=== PATIENT | female | born 1950 | race Two or more races ===

== ENCOUNTER 2019-02-14 16:21 | Inpatient (IN) | payer OTHER ==
[~2019-02-14] VITALS: Ht 157.5 cm; Wt 60.5 kg
[~2019-02-14 16:21] MED LIST: MORPHINE; NAPROSYN; PERCOCET; VALIUM
[2019-02-14 19:08] LABS: Urine Bacteria NONE SEEN /hpf (None Seen); Urine Blood Negative /uL (Negative); Urine Mucus FEW (None Seen); Urine Specific Gravity 1.024 (1.001-1.035); Urine WBC 44 /hpf (0 - 5)
[2019-02-14 21:41] LABS: Basophils # (auto) 0 uL; Basophils % (auto) 0.3 % (0.0-2.0); Eosinophils # (auto) 0.1 uL; Hematocrit 37.2 % (36.0-46.0); Hemoglobin 12.4 g/dL (12.2-16.2); Lymphocytes # (auto) 0.6 uL; Lymphocytes % (auto) 7.9 % (10.0-50.0); Mean Corpuscular Hemoglobin 29.1 pg (28.0-32.0); Mean Corpuscular Hgb Conc. 33.3 g/dL (32.0-36.0); Mean Corpuscular Volume 87.2 fL (80.0-100.0); Monocytes # (auto) 0.7 uL; Monocytes % (auto) 8.5 % (0.0-12.0); Neutrophils # (auto) 6.7 uL; Neutrophils % (auto) 82.3 % (37.0-80.0); Platelet Count (auto) 211 10^3/uL (140-450); Red Blood Cells 4.27 10^6/uL (4.0-5.20); Red Cell Distribution Width 14.6 % (11.8-14.3); White Blood Cell 8.2 10^3/uL (4.4-10.8)
[2019-02-14] MEDS ORDERED: cefTRIAXone 1GM/50ML D5W 50 ML IV ONE (21:45)
[2019-02-14 21:55] LABS: Albumin 3.2 g/dL (3.4-5.0); BUN/Creatinine Ratio 21.5; Calcium 8.5 mg/dL (8.5-10.1); Potassium 3.6 mmol/L (3.5-5.1)
[2019-02-14 21:59] LABS: Bilirubin, Total 2.9 mg/dL (0.2-1.0); Total Protein 7.4 g/dL (6.4-8.2)
[2019-02-14] MEDS ORDERED: metroNIDAZOLE 500 MG TAB PO ONE (22:00)
[2019-02-15] MEDS ORDERED: MORPHINE SULF INJ 2 MG/ML SYRINGE 1ML IV PRN (04:00)
[2019-02-15] MEDS ORDERED: NITROGLYCERIN 0.4 MG SL TAB SL PRN (04:00)
[2019-02-15] MEDS: SODIUM CHLORIDE 0.9% 1,000 ML IV SCH ×4 (06:05→23:55)
[2019-02-15 06:20] VITALS: BP 135/57
--- NOTE | 2019-02-15 06:21 | NUR ---
Telemetry admit from ER Patient admitted to Telemetry unit and oriented to primary RN, unit, room, bed, and unit policies regarding patient care and visiting hours. Patient now on continuous telemetry monitoring, tele box # [id number] and telemetry reading on arrival to unit is sinus rhythm. Patient weighed by bedscale and encouraged to call if they need something. All questions and concerns addressed, patient verbalized understanding.
[2019-02-15] MEDS ORDERED: TEMA30CA PO (06:57)
[2019-02-15] MEDS ORDERED: ALEN1TAB32 PO (06:57)
[2019-02-15] MEDS ORDERED: SERT50TA PO (06:57)
[2019-02-15] MEDS ORDERED: MORP15TA PO (06:57)
--- NOTE | 2019-02-15 06:58 | NUR ---
Spoke to MD Preston. He ordered an MRCP MRI for today. Asked patient required MRI questions.
--- NOTE | 2019-02-15 07:30 | NUR ---
Opening Shift Note Assumed care of patient, awake and alert. No S/S of distress/SOB. DENIES ABDOMINAL pain. Instructed on POC and to call for assist PRN, will continue to monitor for changes Q1hr and PRN. PT IS NPO
[2019-02-15 08:30] VITALS: BP 137/76
[2019-02-15 09:21] LABS: Basophils # (auto) 0 uL; Basophils % (auto) 0.4 % (0.0-2.0); Eosinophils # (auto) 0.2 uL; Eosinophils % (auto) 3.5 % (0.0-7.0); Hematocrit 35.7 % (36.0-46.0); Hemoglobin 11.8 g/dL (12.2-16.2); Lymphocytes # (auto) 0.7 uL; Lymphocytes % (auto) 13.6 % (10.0-50.0); Mean Corpuscular Hemoglobin 28.8 pg (28.0-32.0); Mean Corpuscular Hgb Conc. 33.1 g/dL (32.0-36.0); Mean Corpuscular Volume 87.1 fL (80.0-100.0); Monocytes # (auto) 0.4 uL; Monocytes % (auto) 8.3 % (0.0-12.0); Neutrophils # (auto) 3.6 uL; Neutrophils % (auto) 74.2 % (37.0-80.0); Platelet Count (auto) 178 10^3/uL (140-450); Red Cell Distribution Width 14.6 % (11.8-14.3); White Blood Cell 4.8 10^3/uL (4.4-10.8)
[2019-02-15 09:48] LABS: Albumin 2.7 g/dL (3.4-5.0); Calcium 7.8 mg/dL (8.5-10.1); Potassium 3.3 mmol/L (3.5-5.1)
[2019-02-15] MEDS: PIPERACILLIN-TAZOB 3.375GM 100 ML IV SCH ×3 (09:53→20:58)
[2019-02-15] MEDS: ENOXAPARIN SOD 40 MG/0.4 ML SYRINGE SC SCH (09:54)
[2019-02-15 09:58] LABS: Bilirubin, Total 1.6 mg/dL (0.2-1.0); Total Protein 6.7 g/dL (6.4-8.2)
[2019-02-15 13:00] VITALS: BP 140/86
[2019-02-15 16:37] LABS: INR 1.01 (0.9-1.15); Partial Thromboplastin Time 31.9 sec (23.64-32.05)
[2019-02-15 17:00] VITALS: BP 155/68
--- NOTE | 2019-02-15 18:30 | NUR ---
DR LOPES AT BEDSIDE. INFORMED PT OF POSSIBLE CHOLECYSTECTOMY PROCEDURE TOMORROW. PT VERBALIZED UNDERSTANDING.
--- NOTE | 2019-02-15 19:12 | NUR ---
CLOSING NOTES PT RESTING IN BED. DENIES PAIN OR SOB AT THIS TIME. VERBALIZED COMFORT.
--- NOTE | 2019-02-15 19:20 | NUR ---
Opening Shift Note Received report from jennifer Briseno RN. Assumed care of patient, awake and alert. No S/S of distress/SOB or pain but having some anxiety. Instructed on POC and to call for assist PRN, will continue to monitor for changes Q1hr and PRN. Bed placed in lowest position, bed alarm turn on and call light within reach.
[2019-02-15 22:38] VITALS: BP 143/71
[2019-02-15] MEDS: MORPHINE SULF INJ 2 MG/ML SYRINGE 1ML IV PRN (23:52)
[2019-02-16] MEDS: ONDANSETRON HCL 4 MG/2 ML VIAL IV PRN ×3 (00:07→22:44)
[2019-02-16] MEDS: PIPERACILLIN-TAZOB 3.375GM 100 ML IV SCH ×4 (03:24→20:53)
[2019-02-16 05:00] VITALS: BP 119/74
[2019-02-16] MEDS: SODIUM CHLORIDE 0.9% 1,000 ML IV SCH ×3 (05:57→17:08)
[2019-02-16 06:12] LABS: Potassium 3.1 mmol/L (3.5-5.1)
[2019-02-16 06:14] LABS: Albumin 2.9 g/dL (3.4-5.0); BUN/Creatinine Ratio 16.7
[2019-02-16 06:23] LABS: Bilirubin, Total 1.5 mg/dL (0.2-1.0); Total Protein 7.1 g/dL (6.4-8.2)
[2019-02-16] MEDS ORDERED: POTASSIUM CHL 20MEQ/100ML 100 ML IV ONE (06:45)
--- NOTE | 2019-02-16 07:45 | NUR ---
Patient walking to the bathroom. at bedside.
--- NOTE | 2019-02-16 08:15 | NUR ---
Dr. Denise (GI Consult) at bedside speaking with patient and .
[2019-02-16] MEDS ORDERED: ONDANSETRON HCL 4 MG/2 ML VIAL ONE (08:23)
[2019-02-16] MEDS ORDERED: MIDAZOLAM HCL 1MG/1ML-2 ML VIAL ONE (08:23)
[2019-02-16] MEDS ORDERED: PROPOFOL 10 MG/ML 20 ML IV ONE (08:23)
[2019-02-16] MEDS ORDERED: MEPERIDINE HCL (25 MG/ML) 1ML VIAL ONE (08:23)
[2019-02-16] MEDS ORDERED: LIDOCAINE 2% (LOCAL ANESTH.) PF 5ml SDV ONE (08:23)
[2019-02-16] MEDS ORDERED: LIDOCAINE HCL 2% TOP JELLY 5ML TOP ONE (08:23)
[2019-02-16] MEDS ORDERED: fentaNYL CITRATE 100 MCG/2 ML VL ONE (08:23)
[2019-02-16] MEDS ORDERED: ROCURONIUM 10MG/ML 10ML VIAL IV ONE (08:23)
[2019-02-16] MEDS ORDERED: SODIUM CHLORIDE LOCK 10 ML ONE (08:23)
--- NOTE | 2019-02-16 08:30 | NUR ---
Transferred the patient via bed to Pre Op. Patient awake, alert, oriented x4, no acute distress noted. IV line intact and patent. Endorsed patient to Pre Op RN Seema. at bedside.
[2019-02-16] MEDS ORDERED: ceFAZolin 1GM/50ML 50 ML IV ONE (08:42)
[2019-02-16] MEDS ORDERED: METOCLOPRAMIDE HCL 5MG/ml INJ 2ml VIAL IV PRN (08:45)
[2019-02-16] MEDS ORDERED: MORPHINE SULFATE 4 MG/ML SYR/VIAL IV PRN (08:45)
[2019-02-16] MEDS ORDERED: fentaNYL CITRATE 100 MCG/2 ML VL IV PRN (08:45)
[2019-02-16] MEDS ORDERED: HYDROmorphone HCL 2 MG/ML VL IV PRN (08:45)
[2019-02-16 09:14] LABS: Basophils # (auto) 0 uL; Basophils % (auto) 0.5 % (0.0-2.0); Eosinophils # (auto) 0.1 uL; Eosinophils % (auto) 2.4 % (0.0-7.0); Hematocrit 36.7 % (36.0-46.0); Hemoglobin 12.2 g/dL (12.2-16.2); Lymphocytes # (auto) 1.3 uL; Lymphocytes % (auto) 21.8 % (10.0-50.0); Mean Corpuscular Hgb Conc. 33.2 g/dL (32.0-36.0); Mean Corpuscular Volume 87.4 fL (80.0-100.0); Monocytes # (auto) 0.5 uL; Monocytes % (auto) 9.3 % (0.0-12.0); Neutrophils # (auto) 3.8 uL; Platelet Count (auto) 247 10^3/uL (140-450); Red Cell Distribution Width 14.6 % (11.8-14.3); White Blood Cell 5.8 10^3/uL (4.4-10.8)
--- NOTE | 2019-02-16 09:20 | NUR ---
Dr. Epps came over. made aware patient is at OR/Surgery for Lap Cholecystectomy today as per Dr. Guzman.
--- NOTE | 2019-02-16 09:20 | NUR ---
Dr. Alas came over. made aware patient is as OR/Surgery at this time.
[2019-02-16] MEDS: ENOXAPARIN SOD 40 MG/0.4 ML SYRINGE SC SCH (09:28)
[2019-02-16] MEDS ORDERED: GLYCOPYRROLATE 0.2 MG/ML 1ML VIAL ONE (09:31)
[2019-02-16] MEDS ORDERED: NEOSTIGMINE 1 MG/ML INJ (10mg/10ML VIAL) ONE (09:31)
[2019-02-16] MEDS ORDERED: POVIDONE IODINE 5% TOPICAL CREAM TOP ONE (09:46)
--- NOTE | 2019-02-16 10:50 | NUR ---
Patient back to room, awake. Three incisions on the abdominal area noted, blood stain noted on the incision dressing below the umbilicus.
--- NOTE | 2019-02-16 11:07 | NUR ---
Zofran Inj given for nausea as ordered.
--- NOTE | 2019-02-16 11:15 | NUR ---
Assisted the patient to the bedside commode. Abdominal binder on.
--- NOTE | 2019-02-16 11:30 | NUR ---
SCD's on bilateral legs hooked on SCD machine.
[2019-02-16] MEDS ORDERED: HYDROcodone-ACET 10/325MG TAB PO PRN (12:45)
[2019-02-16 13:00] VITALS: BP 115/64
--- NOTE | 2019-02-16 17:20 | NUR ---
Patient refused to have pain medication at this time, stated she wants to have it around 9:00 pm before bedtime.
[2019-02-16 17:30] VITALS: BP 126/71
--- NOTE | 2019-02-16 19:15 | NUR ---
Opening Shift Note Received report from jennifer Chauhan RN. Assumed care of patient, awake and alert. No S/S of distress/SOB or pain. Instructed on POC and to call for assist PRN, will continue to monitor for changes Q1hr and PRN. Bed placed in lowest position, call light within reach and bed alarm turned on.
--- NOTE | 2019-02-16 21:00 | NUR ---
PATIENT AMBULATING ON THE HALLWAY. PATIENT STATES SHE PASSES A LOT OF GAS. NO BOWEL MOVEMENT REPORTED AT THIS TIME.
[2019-02-16 21:48] VITALS: BP 128/65
[2019-02-16] MEDS: MORPHINE SULF INJ 2 MG/ML SYRINGE 1ML IV PRN (22:44)
[2019-02-17] MEDS: PIPERACILLIN-TAZOB 3.375GM 100 ML IV SCH ×2 (03:28→09:45)
[2019-02-17] MEDS: SODIUM CHLORIDE 0.9% 1,000 ML IV SCH ×3 (05:20→09:54)
[2019-02-17 05:26] VITALS: BP 142/77
--- NOTE | 2019-02-17 07:00 | NUR ---
PATIENT IS RESTING IN BED WITH EYES CLOSED, NO DISTRESS NOTED AND PATIENT DENIES PAIN. 3SURGICAL INCISIONS TO ABD IS CLEAN DRY AND INTACT. ABDOMINAL BINDER AND SCD ON.
[2019-02-17 07:31] LABS: Basophils # (auto) 0 uL; Basophils % (auto) 0.3 % (0.0-2.0); Eosinophils # (auto) 0.1 uL; Eosinophils % (auto) 1.2 % (0.0-7.0); Hematocrit 33.7 % (36.0-46.0); Hemoglobin 11.4 g/dL (12.2-16.2); Lymphocytes % (auto) 13.7 % (10.0-50.0); Mean Corpuscular Hemoglobin 29.2 pg (28.0-32.0); Mean Corpuscular Hgb Conc. 33.8 g/dL (32.0-36.0); Mean Corpuscular Volume 86.5 fL (80.0-100.0); Monocytes # (auto) 0.8 uL; Monocytes % (auto) 10.6 % (0.0-12.0); Neutrophils # (auto) 5.3 uL; Neutrophils % (auto) 74.2 % (37.0-80.0); Platelet Count (auto) 209 10^3/uL (140-450); Red Cell Distribution Width 14.5 % (11.8-14.3); White Blood Cell 7.1 10^3/uL (4.4-10.8)
--- NOTE | 2019-02-17 07:40 | NUR ---
Patient walking in the room, stated she passed gas, no bowel movement today.
[2019-02-17 07:51] LABS: Albumin 2.5 g/dL (3.4-5.0); Calcium 7.8 mg/dL (8.5-10.1); Potassium 3.3 mmol/L (3.5-5.1)
[2019-02-17 07:53] LABS: BUN/Creatinine Ratio 6.8
[2019-02-17 07:55] LABS: Bilirubin, Total 1.1 mg/dL (0.2-1.0); Total Protein 6.3 g/dL (6.4-8.2)
[2019-02-17 09:00] VITALS: BP 132/73
--- NOTE | 2019-02-17 09:10 | NUR ---
Patient walking on the hallway, steady gait noted. Patient said she had a bowel movement, stated it was watery stools. Patient on Clear Liquid Diet.
--- NOTE | 2019-02-17 09:14 | NUR ---
Informed Dr. Guzman that patient is walking, passing gas, had watery stools today. Patient on Clear Liquids. Dr. Epps asked if patient is okay to be discharged today. Waiting for Dr. Guzman to alexander back.
--- NOTE | 2019-02-17 09:22 | NUR ---
Called Dr. Epps. made aware I'm waiting for Dr. Guzman to alexander back if patient is okay to go home today (as per Surgery perspective. Patient's K = 3.[address] Epps ordered Potassium ER 40 Meq tablet once, said he will come over to see the patient to write prescription, advance diet as tolerated.
--- NOTE | 2019-02-17 09:28 | NUR ---
Dr. Guzman said patient is okay for discharged today, patient to make a follow up appointment in two weeks at his office. Addendum: 02/17/19 at 4149 by Gissel Nguyen RN for discharge
[2019-02-17] MEDS: ENOXAPARIN SOD 40 MG/0.4 ML SYRINGE SC SCH (09:29)
[2019-02-17] MEDS ORDERED: POTASSIUM CHL 20 Meq TABLET PO ONE (09:30)
--- NOTE | 2019-02-17 09:50 | NUR ---
Dr. Epps at bedside, asked the patient if she needs prescription for pain medication. Patient refused, stated she has pain medications at home. MD ordered to proceed with discharge as ordered.
--- NOTE | 2019-02-17 12:00 | NUR ---
Instructions given to keep the abdominal binder on when getting up, walking. May loosen the binder when asleep.
--- NOTE | 2019-02-17 12:55 | NUR ---
Discharge instructions given as ordered. Encourage to follow up with PMD as instructed. All questions and concerns addressed. Patient verbalized understanding. Medication reconciliation form completed and copy given to patient. IV removed with catheter intact, pressure dressing applied. Telemetry unit returned to ICU. Patient is ambulatory, refused to be taken to vehicle via wheelchair, patient with all personal belongings, accompanied by family member. No distress noted at time of departure.
== END 2019-02-17 12:55 | disposition home health service (06) | DRG 417 ==
LOC: ER 16:21 → TELE 16:22 → TELE-CENTR 02-15 06:39
PROVIDERS: ADMIT Hospitalist; ATTEND Hospitalist
PROC: 0FT44ZZ Resection of Gallbladder, Percutaneous Endoscopic Approach (ICD-10-PCS; principal; 2019-02-16 08:55)
DX: K80.61 Calculus of gallbladder and bile duct with cholecystitis, unspecified, with obstruction (principal); K85.10 Biliary acute pancreatitis without necrosis or infection; N39.0 Urinary tract infection, site not specified; K57.90 Diverticulosis of intestine, part unspecified, without perforation or abscess without bleeding; F32.9 Major depressive disorder, single episode, unspecified; M16.11 Unilateral primary osteoarthritis, right hip; M81.0 Age-related osteoporosis without current pathological fracture; Z96.652 Presence of left artificial knee joint; G47.00 Insomnia, unspecified; F41.9 Anxiety disorder, unspecified; Z87.891 Personal history of nicotine dependence; Z87.440 Personal history of urinary (tract) infections; Z90.710 Acquired absence of both cervix and uterus; Z88.1 Allergy status to other antibiotic agents; Z88.0 Allergy status to penicillin; Z88.6 Allergy status to analgesic agent; Z88.2 Allergy status to sulfonamides; Z88.8 Allergy status to other drugs, medicaments and biological substances; Z90.89 Acquired absence of other organs; Z98.51 Tubal ligation status; Z80.1 Family history of malignant neoplasm of trachea, bronchus and lung; Z79.899 Other long term (current) drug therapy
CPT/HCPCS: 36415; 71045; 74176; 74181; 80053; 81001; 82150; 83690; 85025; 85610; 85730; 86850; 86900; 86901; 87086; 93005; 96365; 96367; 96372; G0378; J0690; J0696; J2001; J2250; J2405; J2543; J2704; J3480

== ENCOUNTER 2019-12-24 09:13 | Emergency (ER) | payer OTHER ==
[~2019-12-24] VITALS: Ht 157.5 cm; Wt 83.9 kg
[~2019-12-24 09:13] MED LIST changes: +ALEN1TAB32 PO; +MORP15TA PO; -MORPHINE; -NAPROSYN; -PERCOCET; +SERT50TA PO; +TEMA30CA PO; -VALIUM
[2019-12-24 13:00] VITALS: BP 134/49
== END 2019-12-24 13:13 | disposition home or self-care (01) ==
LOC: ER 09:13 → EDBD 09:13 → ER 13:13
DX: S70.01XA Contusion of right hip, initial encounter (principal); W18.30XA Fall on same level, unspecified, initial encounter; Y93.89 Activity, other specified; Y92.009 Unspecified place in unspecified non-institutional (private) residence as the place of occurrence of the external cause; Y99.8 Other external cause status
CPT/HCPCS: 73502; 93005